=== PATIENT | female | born 1960 | race Caucasian/White ===

== ENCOUNTER 2025-01-01 01:56 | Inpatient (IN) | payer SELFPAY ==
[2024-12-31] VITALS (7 sets, daily range): BP systolic 106–182; BP diastolic 51–82; BMI 26.8
[2024-12-31 21:25] LABS: % Basophils 0.2 % (0-2); % Eosinophils 1.2 % (0-6); % Immature Granulocytes 0.2 % (0-0.5); % Lymphocytes 13.8 % (20.5-51.1); % Monocytes 5.8 % (1.7-9.3); % Neutrophils 78.8 % (42.2-75.2); Absolute Eosinophils 0.1 10^3/uL (0-0.7); Absolute Lymphocytes 1.1 10^3/uL (1.2-3.4); Absolute Monocytes 0.5 10^3/uL (0.1-0.6); Absolute Neutrophils 6.5 10^3/uL (1.4-6.5); Hematocrit 36.8 % (37.0-47.0); Hemoglobin 12.8 g/dL (12.0-16.0); Mean Corp Hgb Conc. 34.8 g/dL (33.0-37.0); Mean Corpuscular Hgb 29.7 pg (27.0-31.0); Mean Corpuscular Volume 85.4 fL (81.0-99.0); Mean Platelet Volume 10.6 fL (7.4-10.4); Nucleated Red Blood Cells % 0 %; Platelet Count 223 10^3/uL (130-400); Red Blood Cell Count 4.31 10^6/uL (4.20-5.40); Red Cell Dist. Width 12.9 % (11.5-14.5); White Blood Cell Count 8.3 10^3/uL (4.8-10.8)
[2024-12-31] MEDS: ZOFRAN 4 MG IV (21:31)
[2024-12-31] MEDS: TORADOL 15 MG IV (21:31)
[2024-12-31 21:38] LABS: ALT (SGPT) 22 U/L (0-35); AST (SGOT) 28 U/L (14-36); Albumin 4.4 g/dl (3.5-5.0); Alkaline Phosphatase 54 U/L (38-126); Blood Urea Nitrogen 23 mg/dl (7-17); Calcium 9.9 mg/dl (8.4-10.2); Carbon Dioxide 28 mmol/L (22-30); Chloride 105 mmol/L (98-107); Glucose 135 mg/dl (70-99); Lipase 99 U/L (23-300); Potassium 3.8 mmol/L (3.5-5.1); Sodium 143 mmol/L (135-145); Total Bilirubin 0.4 mg/dl (0.2-1.3); Total Protein 7.3 g/dl (6.3-8.2); eGFR > 60.00
[2024-12-31 22:09] LABS: Troponin I < 0.012 ng/ml
--- NOTE | 2024-12-31 22:48 | ED.GENMED ---
History of Present Illness
General
Chief Complaint: Abdominal Pain
Source: patient
Exam Limitations: none
Time Seen by Provider: 12/31/24 21:01
Nursing documentation reviewed up to this point in time: agreed with
History of Present Illness
History of Present Illness:
64-year-old female with a past medical history of hypertension, hyperlipidemia, hypothyroidism, sleep apnea who presents to the emergency room for evaluation of abdominal pain. Patient reports onset of symptoms around 6 PM and they have been
constant since that time. She has had intermittent symptoms for the past 3 days. She reports aching/pressure pain in the epigastrium that does not radiate. No clear triggering or relieving factors noted. She has nausea and some vomiting. No
diarrhea or constipation. Denies urinary symptoms. Denies chest pain or shortness of breath. She said she has had intermittent episodes in the past but typically they are transient; tonight is having consistent symptoms. She was noted to be
markedly bradycardic in triage. She denies any dizziness or lightheadedness. She has seen a chief resource officer through [place] for screening examinations. She was able to pull up an office note from her last visit and it was noted that she has
chronic first-degree AV block; she apparently had a Holter monitor in October 2023 which showed intermittent episodes of second-degree AV block with bradycardia into the 40s�she says that intermittent bradycardia is a known issue for her.
Past History
Past History
ED Past Medical History: Arrthythmia (First-degree AV block) and Hypercholesterolemia; Negative CAD, CVA or HTN
ED Past Surgical History: Negative Cardiac
Social History
Alcohol: None
Drug: None
Personal:
Employment: Employed
Family History
Family History: Hypertension and Other (Atrial fibrillation); Negative CAD
Review of Systems
Review of Systems
All Other Systems: ROS reviewed and negative except as documented in HPI and ROS
Constitutional: Denies fever or chills
Respiratory: Denies cough or trouble breathing
Cardiac: Denies chest pain
ABD/GI: Reports abdominal pain, nausea and vomiting; Denies diarrhea or constipated
: Denies dysuria or frequency
Musculoskeletal: Denies neck pain or back pain
Neurological: Denies dizzy or headache
Phy Exam
Physical Exam
Physical Exam:
General: Awake, alert, oriented x3; holding emesis bag
Head: Normocephalic, atraumatic
Eyes: Conjunctiva normal, sclera anicteric
Throat: Airway intact, handling secretions
Neck: Trachea midline, supple without meningismus
Lungs: Clear to auscultation bilaterally, no wheezing, rales, rhonchi
Heart: Bradycardia with regular rhythm, no murmurs, gallops, or rubs
Abd: Soft, non distended, tender to palpation epigastrium and right upper quadrant; no palpable masses
Neuro: No gross deficits
Skin: Warm, dry
Extremities: No edema in extremities, warm and well-perfused
Scores
Heart Failure Risk
Heart Failure Risk Score: Not Applicable
Heart Score for Chest Pain Patients
STEMI patient?: Not applicable
Withdrawal Assessment of Alcohol
Withdrawal Assessment Completed?: Not applicable
Course
Orders/Labs/Results
Orders:
Orders
12/31/24 20:39
EKG [Electrocardiogram (*1)] Urgent
Reason for Study: Abdominal Pain
12/31/24 20:40
EKG- Treatment ONCE
Urinalysis Reflex To Culture Stat
Date Specimen was Collected: 12/31/24
Time Specimen was Collected: 20:40
12/31/24 21:19
Complete Blood Count/With Diff Urgent
Comprehensive Metabolic Panel Urgent
Free T4 Urgent
Lipase Urgent
TSH Reflex To Free T4 Urgent
Comment: ADD ON
12/31/24 21:23
US Abdomen Complete/Upper Urgent
Comment:
Reason For Exam: upper abd pain and tenderness
12/31/24 21:27
Add On- LAB Urgent
Tests Added?: TSH reflex to T4
Ketorolac [Toradol] 15 mg IV NOW STA
Ondansetron Injectable [Zofran] 4 mg IV NOW STA
12/31/24 21:36
Troponin I Urgent
12/31/24 22:54
Atropine Sulfate [Atropine 0.1 mg/ml Syringe] 1 mg IV NOW STA
12/31/24 23:07
Electrocardiogram (*1) Urgent
Reason for Study: Bradycardia / Tachycardia
EKG- Treatment ONCE
01/01/25 00:45
CefTRIAXone [Rocephin] 1,000 mg IV NOW STA
MetroNIDAZOLE 500 MG/100 ML [Flagyl 500 mg] 100 ml IV NOW
01/01/25 00:52
CARDIOLOGY CONSULT Urgent
Consulting Provider: Nigel Reis
Was physician already notified: Yes
SURGICAL CONSULT Urgent
Consulting Provider: Scott Anaya
Was physician already notified: Yes
Abnormal Lab Results
12/31/24
21:19
Hct 36.8 L %
(37.0-47.0)
MPV 10.6 H fL
(7.4-10.4)
Absolute Lymphs (auto) 1.1 L 10^3/uL
(1.2-3.4)
Neutrophils % 78.8 H %
(42.2-75.2)
Lymphocytes % 13.8 L %
(20.5-51.1)
BUN 23 H mg/dl
(7-17)
Glucose 135 H mg/dl
(70-99)
TSH (Reflex) 6.85 H uIU/ml
(0.47-4.68)
12/31/24 21:19
12/31/24 21:19
Vital Signs
Initial and Last Documented VS:
Initial Vital Signs
Temp Pulse Resp BP Pulse Ox
36.4 C 38 18 156/72 100
12/31/24 20:51 12/31/24 20:51 12/31/24 20:51 12/31/24 20:51 12/31/24 20:51
Last Documented Vital Signs
Temp Pulse Resp BP Pulse Ox
36.4 C 88 16 124/78 99
12/31/24 20:51 12/31/24 23:00 12/31/24 23:00 12/31/24 23:00 12/31/24 23:00
MDM/Problems Addressed
Differential Diagnosis Includes:
Angina/ACS, cholecystitis, cholelithiasis, choledocholithiasis, pancreatitis, gastritis, bowel obstruction
MDM/Problems Addressed:
64-year-old female presents for evaluation of epigastric pain as described above. Hypertensive and markedly bradycardic with heart rate 30s to 40s. Physical exam as above. She was immediately brought back to a room and placed on a cardiac
monitor. Pacer pads were applied. IV placed labs sent off including CBC, CMP, lipase, troponin, TSH. Will check urinalysis. Her EKG shows junctional bradycardia�she is in complete heart block with a junctional escape rhythm. Will trial atropine
for bradycardia. Reviewed EKG with cardiology who agrees that it is consistent with complete heart block. She is in significant pain�they suspect could be increased vagal tone related to her pain. Recommended treating her pain, avoid AV jacky
blockers and close monitoring. She will require admission ultimately we will start with an upper abdominal ultrasound for evaluation of her upper abdominal pain. Monitor very closely.
Heart rate improved to the 80s with pain control and atropine.
Labs reviewed: CBC unremarkable, CMP no clinically significant abnormalities. Troponin negative. Lipase normal. TSH was high but free T4 normal. Ultrasound pending.
Ultrasound shows signs concerning for acute cholecystitis. Discussed with general surgery for consultation. Will treat with antibiotics. Will admit to hospitalist service given her issues with complete heart block earlier�fortunately she is in
sinus rhythm with heart rate in the 70s at present. Case discussed with hospitalist for admission.
Acute Exacerbation and/or Progression of Chronic Illness:
Acutely hypertensive
Acute Exacerbation and/or Progression of Chronic Illness: HTN
*Radiology
Radiology exam reviewed: radiology read reviewed
*Pulse Oximetry
Patient hypoxic: no
*EKG
Interpreted by ED Provider?: Yes
Heart Rate: 37
Rate: bradycardiac
Rhythm: sinus (Sinus rhythm with complete heart block and junctional escape rhythm)
[place]: normal axis
Interval: third degree heart block
QRS Pattern: normal QRS
Ischemia: no ischemia
*Critical Care Note
Total Time (30-74mins, 75-104mins- exclusive of procedures): 41
comment:
Critical care statement: A total of 41 minutes of critical care time was provided for this patient. This includes management of unstable vital signs, evaluation of the patient at bedside, frequent reassessment, discussion with
consultants/hospitalist, and review of pertinent medical records. This time was separate from time utilized to perform any aforementioned documented procedures
Data Reviewed
Source: patient and records
Patient Management
Discussion with other providers: Hospitalist (Discussed with hospitalist) and Quality Control Tester (Discussed with cardiology, discussed with general surgery)
Escalation/DeEscalation of care consider admission/obs:
Admission indicated
ED Attending Note
-
Portions of this chart may have been created with voice recognition software.� Occasional wrong word or��sound alike� substitutions may have occurred due to the inherent limitations of voice recognition software.
Discharge Plan
Departure
Patient Disposition: Admit
Date of Disposition: 01/01/25
Time of Disposition: 00:59
Admit to doctor: Torey
Presentation/result/management discussed w/ accepting MD/DO: Hospitalist
Discharge Problem:
Acute cholecystitis, Complete heart block
Referrals:
Kavitha Xiong CRNP [Family Provider] -
Interventions
Interventions:
*Risk Screen - Suicide Last Done: 12/31/24 20:55
*General Assessment Last Done: 12/31/24 20:55
*Neglect/Abuse Screening Last Done: 12/31/24 20:55
*ED COVID-19 Vaccine History Last Done: 12/31/24 20:55
MP-Fgkdbd-Bvnfywlpdt Assessment Last Done: 12/31/24 21:15
Discharge Date and Time
Print Language: [place]
[2024-12-31] MEDS: ATROPINE 0.1 MG/ML SYRINGE 1 MG IV (22:57)
[2024-12-31 23:09] LABS: TSH Reflex To Free T4 6.85 uIU/ml (0.47-4.68)
[2025-01-01] VITALS (54 sets, daily range): BP systolic 14–146; BP diastolic 51–107; PULSE 35–39
--- NOTE | 2025-01-01 00:30 | TRANSFER ---
Addendum entered by Davy Baptiste RN 01/02/25 01:45:
Pt transferred to IVU around 0030 on 01/02, not 01/01.
Original Note:
Pt remains in second degree type I heart block throughout shift, HR ranging from 30s-40s while awake, HR decreasing to as low as 28 with multiple ~ 2 second pauses while asleep with CPAP on. Pt is otherwise asymptomatic, BP remaining stable at
117/64, no pain or dizziness per pt. No complaints of pain. MIKALA Tee notified of bradycardia, EKG completed and showing afib with slow ventricular response with a competing junctional pacemaker, afib replacing previous EKG of sinus
rhythm. MIKALA Camara placed order for transfer to IVU. Pt transferred to IVU room 2243 with all her belongings and hospital CPAP machine. Pt remained pleasant and asymptomatic upon transfer.
[2025-01-01] MEDS: FLAGYL 500 MG 100 IV (01:04)
[2025-01-01] MEDS: ROCEPHIN 1000 MG IV (01:04)
--- NOTE | 2025-01-01 01:42 | HPS.HSE ---
Family Physician
-
Family Physician: REDD Oconnell
Chief Complaint
-
Abd pain
History of Present Illness
Patient is a 64y F with PMH significant for hypertension and hypothyroidism who presents to ED complaining of abdominal pain and N/V. Patient states that she developed epigastric abdominal pain around 6PM this evening. She had fairly severe
pain and associated N/V. Her symptoms did not improve after emesis. Patient reports 3 prior / similar episodes with less severe symptoms. Each occurs about 5 hours after eating a meal.
Her symptoms tonight were more severe and did not improve after emesis, prompting her to present to the ED for further evaluation.
While in the ED, patient developed significant bradycardia / complete heart block on monitor. She was given a dose of atropine and her rate improved.
Patient states that a similar event occurred during a previous ED visit for abdominal pain.
At the time of my examination patient is resting comfortably.
Medical History
Past Medical History
Past Medical History: Reports Other
Additional Past Medical History:
Hypothyroidism
Hypertension
First Degree AV Block
Past Surgical History: Reports Other
Additional Past Surgical History:
Hernia Repair
Breast Reduction / Scar Revision
Septoplasty
Social History
Tobacco: Former Smoker (Quit smoking in 1983. Minimal pack year history.)
Alcohol: Occasional
Drug: None
Family History
Family History: Not pertinent
Allergies / Home Medications
Allergies reflects when Allergies were last updated in [facility].
Home Medications with original date entered in [facility]
Allergy/Medication List:
Allergies
Allergy/AdvReac Type Severity Reaction Status Date / Time
No Known Allergies Allergy Verified 12/31/24 22:21
Home Medications
calcium carbonate 500 mg PO DAILY 01/01/25
cholecalciferol (vitamin D3) 25 mcg (1,000 unit) tablet 25 mcg PO DAILY 01/01/25
fenofibrate 54 mg tablet 54 mg PO DAILY 01/01/25
hydrochlorothiazide 12.5 mg tablet 12.5 mg PO DAILY 01/01/25
levothyroxine 125 mcg tablet 125 mcg PO DAILY 01/01/25
lisinopril 10 mg tablet 10 mg PO DAILY 01/01/25
Review of Systems
-
History Source: Patient
A 12 point ROS was completed and negative except as noted: Yes
Constitutional: Denies Fever, Fatigue or Chills
EENT: Denies Sore Throat
Respiratory: Denies Cough or Trouble Breathing
Cardiac: Denies Chest Pain or Palpitations
Abdomen/GI: Reports Abdominal Pain, Nausea and Vomiting; Denies Diarrhea, Constipated, Bloody Stools or Anorexia
: Denies Dysuria or Frequency
Musculoskeletal: Denies Joint Pain or Edema
Neurological: Denies Dizzy or Headache
Psych: Denies Depression or Anxiety
Physical Exam
Vital Signs
Vital Signs
Temp Pulse Resp BP Pulse Ox
97.5 F 60 17 126/79 95
12/31/24 20:51 01/01/25 01:00 01/01/25 01:00 01/01/25 01:00 01/01/25 01:00
Physical Exam
General: Other (64y F in no acute distress.)
HEENT: Moist mucous membranes and PERRLA
Respiratory: Clear; No Wheezes, Rales or Rhonchi
Cardiac: S1/S2 and Regular Rhythm; No Murmur
GI: Soft, Non Distended, Normal Bowel Sounds and Other (Mild epigastric tenderness. )
Musculoskeletal: No Clubbing, No Cyanosis and No Edema
Neuro: AO x 3
Laboratory Results
-
12/31/24 21:19
12/31/24 21:19
Laboratory Results
Total Bilirubin 0.4 mg/dl (0.2-1.3) 12/31/24 21:19
AST 28 U/L (14-36) 12/31/24 21:19
ALT 22 U/L (0-35) 12/31/24 21:19
Alkaline Phosphatase 54 U/L (38-126) 12/31/24 21:19
Troponin I < 0.012 ng/ml 12/31/24 21:36
Lipase 99 U/L (23-300) 12/31/24 21:19
Impression/Plan
-
A/P: Patient is a 64y F with PMH significant for hypertension and hypothyroidism who presents to ED complaining of abdominal pain.
Cholelithiasis +/- Acute Cholecystitis
- Admit for further evaluation and treatment.
- Post-prandial abdominal pain with associated N/V.
- US shows gallstones with some in GB neck and moderate wall thickening.
- IV abx, NPO, IVFs, pain control, etc.
- Surgery evaluation for further recommendations / cholecystectomy.
- Follow for any new / worsening symptoms.
Heart Block
- Chronic 1st degree block and period of complete block with significant bradycardia noted in the ED.
- Currently in 1st degree block with adequate HR on tele.
- Avoid any AV jacky agents.
- Monitor on telemetry. Zoll pads in place.
- Cardiology evaluation for additional recommendations (follows with Dr. Zendejas / [facility]).
Benign Hypertension
- Stable. Hold lisinopril and HCTZ acutely.
- Follow for changes.
Hypothyroidism
- Stable. Continue current T4 supplementation.
- TFTs done today in the ED are adequate.
DVT Prophylaxis: SCDs
Code Status: Full
[2025-01-01 03:20] LABS: Urine Albumin 1+ (Neg - Trace); Urine Bilirubin Negative (Negative); Urine Character Clear (Clear); Urine Color Yellow; Urine Glucose Negative (Negative); Urine Ketone Negative (Negative); Urine Leukocyte Negative (Negative); Urine Nitrite Negative (Negative); Urine Occult Blood 2+ (Negative); Urine Urobilinogen Negative (Neg - 1+)
[2025-01-01 03:59] LABS: Urine Amorphous Seen; Urine Bacteria Few (Negative); Urine Granular Cast 0-2 /LPF (0); Urine White Cell 0-2 /HPF (0-5)
[2025-01-01] MEDS: LR 1000 IV ×2 (04:30→18:15)
[2025-01-01] MEDS: ATROPINE 0.1 MG/ML SYRINGE 1 MG IV (05:23)
[2025-01-01 05:49] LABS: ALT (SGPT) 18 U/L (0-35); AST (SGOT) 23 U/L (14-36); Albumin 3.6 g/dl (3.5-5.0); Alkaline Phosphatase 37 U/L (38-126); Blood Urea Nitrogen 25 mg/dl (7-17); Carbon Dioxide 26 mmol/L (22-30); Chloride 110 mmol/L (98-107); Direct Bilirubin 0.2 mg/dl (0.0-0.4); Estimated Creatinine Clearance 73 ml/min; Glucose 107 mg/dl (70-99); Magnesium 1.9 mg/dl (1.6-2.3); Potassium 4.2 mmol/L (3.5-5.1); Sodium 143 mmol/L (135-145); Total Bilirubin 0.4 mg/dl (0.2-1.3); eGFR > 60.00
[2025-01-01 05:50] LABS: Hematocrit 31.7 % (37.0-47.0); Hemoglobin 10.9 g/dL (12.0-16.0); Mean Corp Hgb Conc. 34.4 g/dL (33.0-37.0); Mean Corpuscular Hgb 29.5 pg (27.0-31.0); Mean Corpuscular Volume 85.7 fL (81.0-99.0); Mean Platelet Volume 10.6 fL (7.4-10.4); Platelet Count 191 10^3/uL (130-400); Red Cell Dist. Width 12.8 % (11.5-14.5); White Blood Cell Count 7.9 10^3/uL (4.8-10.8)
[2025-01-01] MEDS: SYNTHROID 125 MCG PO (06:31)
[2025-01-01] MEDS: ZOSYN 50 IV ×3 (08:45→19:50)
[2025-01-01] MEDS: PROTONIX IV 40 MG IV (08:45)
[2025-01-01] MEDS: NSS (PRESERVATIVE FREE) 10 ML IV (08:46)
--- NOTE | 2025-01-01 09:31 | CON.GS ---
Addendum entered and electronically signed by Francisco Franco MD 01/01/25 11:05:
I saw and examined the patient independently.
The resident's documentation was reviewed and I agree with the note, assessment and plan except where noted below.
Comment: This is a 64-year-old female with a history of hypothyroidism, hypertension who presents with worsening abdominal pain that has now improved. Signs and symptoms of cholecystitis on ultrasound however clinically not significantly tender and
pain improved with antibiotics. Noted bradycardia. Cardiology on board with no urgent plan for pacemaker placement.
Will plan for a laparoscopic cholecystectomy in the OR today.
N.p.o., IV fluids, IV antibiotics ordered.
Risks/Benefits/Alternatives, expected postoperative course and possible complications (bleeding, infection, injury to surrounding structures, acute/chronic pain) discussed at length. Patient wishes to proceed with surgery. All questions answered.
Consent obtained.
I spent 75 minutes in total for the care of this patient today including direct patient care and counseling, reviewing labs, imaging, coordination of care, as well as documentation.
Original Note:
Consultation
-
Date/Time Consultation Requested: 01/01/25 12:52 AM
Date/Time Consultation Performed: 01/01/25 9:05 AM
Requesting Provider: Dr. Wes Wright
Performing Provider: Dr. Francisco Franco
Reason for Consultation: Acute cholecystitis seen on Abdominal ultrasound
Medical History
-
Chief Complaint: Acute abdominal pain
History of Present Illness:
Patient is a 64-year-old female with past medical history of hypertension, hypercholesterolemia, hypothyroidism, sleep apnea who presents to the ED accompanied by her for evaluation of epigastric abdominal pain that started around 6 PM the
previous evening on 12/31/24. She rates the pain as severe, persistent, location is in the epigastric quadrant radiating to right upper quadrant, associated with nausea and multiple episodes of vomiting, symptoms aggravated a couple of hours after
eating a meal, not relieved on positional change. She previously had 3-4 similar episodes since August 2024 after consuming a meal on different days, however the pain was not as severe at that time to warrant a visit to the ER and self limiting.
Patient is afebrile with a normal WBC count on admission. Abdominal U/S showed evidence of gallstones in the neck of the gallbladder, diffuse gallbladder wall thickening suggestive of acute cholecystitis.
Also, While in the emergency department she developed bradycardia/complete heart block on monitor.
Past Medical History
Past Medical History: HTN, Hypercholesterolemia, Hypothyroidism and Other (Sleep apnea)
Past Surgical History: Hernia Repair and Other (Breast reduction, Septoplasty)
Social History
Tobacco: Former Smoker (quit in 1983)
Alcohol: Occasional
Drug: None
Personal:
Employment: Employed
Family History
Family History: Reviewed & Not Pertinent
Allergies / Home Medications
Allergy/AdvReac Type Severity Reaction Status Date / Time
No Known Allergies Allergy Verified 12/31/24 22:21
�Medication �Instructions �Recorded �Confirmed �Type
calcium carbonate 500 mg PO DAILY 01/01/25 01/01/25 History
cholecalciferol (vitamin D3) 25 25 mcg PO DAILY 01/01/25 01/01/25 History
mcg (1,000 unit) tablet
fenofibrate 54 mg tablet 54 mg PO DAILY 01/01/25 01/01/25 History
hydrochlorothiazide 12.5 mg tablet 12.5 mg PO DAILY 01/01/25 01/01/25 History
levothyroxine 125 mcg tablet 125 mcg PO DAILY 01/01/25 01/01/25 History
lisinopril 10 mg tablet 10 mg PO DAILY 01/01/25 01/01/25 History
Review of Systems
-
History Source: Patient
All other systems: Negative unless noted
Abdomen/GI: Abdominal Pain, Nausea and Vomiting
A 10 point review of systems was completed, and was negative except as per HPI.
Physical Exam
Vital Signs
Temp Pulse Resp BP Pulse Ox
97.5 F 51 10 132/70 95
12/31/24 20:51 01/01/25 08:00 01/01/25 08:00 01/01/25 08:00 01/01/25 08:00
12/31/24 01/01/25 01/02/25
06:59 06:59 06:59
Actual Weight 72 kg
Body Mass Index (BMI) 26.8
Lab Results
01/01/25 05:15
01/01/25 05:15
WBC 7.9 10^3/uL (4.8-10.8) 01/01/25 05:15
Hgb 10.9 g/dL (12.0-16.0) L 01/01/25 05:15
Hct 31.7 % (37.0-47.0) L 01/01/25 05:15
Plt Count 191 10^3/uL (130-400) 01/01/25 05:15
Abs Immat Gran (auto) 0.0 10^3/uL (0-0.05) 12/31/24 21:19
Neutrophils % 78.8 % (42.2-75.2) H 12/31/24 21:19
Physical Exam
General: Well Developed and Well Nourished
Respiratory: Clear; Negative Wheezes, Rales or Rhonchi
Cardiac: S1/S2, Regular Rhythm and Other (Bradycardic)
GI: Soft, Non Distended, Normal Bowel Sounds and Tender (Mild tenderness in epigastric region on palpation)
Musculoskeletal: No Clubbing, No Cyanosis and No Edema
Skin: Warm and Dry
Neuro: Awake, Alert, Oriented and AO x 3
Psych: Calm
Data Reviewed
-
Ultrasound: Image Personally Visualized and interpreted, Report Reviewed by me and Discussed with Physician
Labs: Labs Reviewed by me and Discussed with Physician
Assessment / Plan
-
Acute Cholecystitis with cholelithiasis in neck of gallbladder:
- Abdominal US shows gallstones in neck of gallbladder and moderate wall thickening.
- Met patient at bedside today and discussed benefits, risks, complications of Cholecystectomy.
- Continue IV Zosyn
- Continue on NPO in anticipation of surgery
- Continue IV fluids
- Continue IV Protonix for stress ulcer ppx
- Pain control with Tylenol and Dilaudid PRN
First degree heart block/ Bradycardia:
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
- Has been asymptomatic (no fatigue, palpitations, lightheadedness, syncope) since her diagnosis
- Cardiology is following, and think that her Acute cholecystitis caused her bradycardia due to acute inflammation, she does not need a pacemaker, and is ok to proceed with surgery
Benign Hypertension:
- BP is 132/70 and well controlled, continue to monitor
- Hold Lisinopril and HCTZ until after procedure
Hypothyroidism:
- Continue on Levothyroxine
DVT ppx- SCD's
Full code
--- NOTE | 2025-01-01 10:22 | CON.CAR ---
Addendum entered and electronically signed by David Waite MD 01/01/25 11:12:
I saw and examined the patient.
The GENERAL PEDIATRICIAN or PA's note was reviewed and I agree with the note.
Comment: General: Well developed, well nourished in NAD.
Neck: Supple, no JVD, HJR, carotids +2 B/L, no bruits bilaterally.
Heart: Non displaced PMI, RRR, no murmurs, No S3, S4, no rubs.
Lungs: Clear to auscultation bilaterally, no wheeze, rhonchi, rubs bilaterally,
normal expiratory phase.
Extremities: No clubbing, cyanosis or edema bilaterally.
Neuro: Grossly nonfocal, awake, alert and oriented x3.
Suzie has a history of hypothyroidism, hypertension, first-degree AV block. She presented with abdominal pain and was found to have cholecystitis. Cardiology was consulted for heart block noted on telemetry she denies chest pain, short of
breath, palpitations or dizziness. Complete heart block has resolved.
Stable cardiology status for cholecystectomy without further testing. May consider monitor on discharge. She has cardiology follow-up at [facility].
Original Note:
Consultation
Consultation Request
Date/Time Consultation Requested: 01/01/2025
Date/Time Consultation Performed: 01/01/2025
Requesting Provider: Dr. Lema
Performing Provider: Jane Ramírez PA-C for Dr. Waite
Reason for Consultation: Cholecystitis, intermittent heart block
Medical History
-
History of Present Illness:
HPI: Suzie is a 64 year old female with PMH of hypothyroidism and hypertension. Presented to [facility] for evaluation of abdominal pain. She has been struggling with intermittent abdominal discomfort since August 2024, however symptoms initially
only occurred about 1x/month and would resolve quickly, however over the past few weeks, has had more frequent episodes. Last night had a severe episode of abdominal discomfort after eating which persisted after a few hours, prompting ER evaluation.
In ER, she was noted to have evidence of acute cholecystitis on abdominal US and was admitted and started on IV abx. General surgery has been consulted for evaluation as well. She is pain free currently. While in ER, also noted to have intermittent
episodes of bradycardia with higher grade AV block. Asymptomatic. At baseline, has a long 1st degree AV block, which she states is known and has been followed by her primary design coordinator. She has never had discussions regarding need for PPM, however
multiple family members have required PPM and ICD implant, so she is familiar. She denies any dizziness, lightheadedness, syncope, or near syncope. No chest pain or SOB, but notes w/ severe abdominal pain last night, felt like she needed to take
shallow breaths.
PMH:
Hypothyroidism
HTN
1st degree AV Block
Past Medical History
Past Medical History: Other (In HPI)
Past Surgical History: Other (hernia repair, breast reduction, septoplasty)
Social History
Tobacco: Former Smoker (Quit in )
Alcohol: Occasional
Drug: None
Personal:
Living: With Family
Employment: Employed (manager performance RN)
Family History
Family History: Other (mother & father had PPM, brother has ICD)
Allergies / Home Medications
Allergy/AdvReac Type Severity Reaction Status Date / Time
No Known Allergies Allergy Verified 12/31/24 22:21
�Medication �Instructions �Recorded �Confirmed �Type
calcium carbonate 500 mg PO DAILY 01/01/25 01/01/25 History
cholecalciferol (vitamin D3) 25 25 mcg PO DAILY 01/01/25 01/01/25 History
mcg (1,000 unit) tablet
fenofibrate 54 mg tablet 54 mg PO DAILY 01/01/25 01/01/25 History
hydrochlorothiazide 12.5 mg tablet 12.5 mg PO DAILY 01/01/25 01/01/25 History
levothyroxine 125 mcg tablet 125 mcg PO DAILY 01/01/25 01/01/25 History
lisinopril 10 mg tablet 10 mg PO DAILY 01/01/25 01/01/25 History
Review of Systems
-
History Source: Patient
All other systems: Negative unless noted
Physical Exam
Vital Signs
Temp Pulse Resp BP Pulse Ox
97.5 F 51 10 132/70 95
12/31/24 20:51 01/01/25 08:00 01/01/25 08:00 01/01/25 08:00 01/01/25 08:00
Lab Results
01/01/25 05:15
01/01/25 05:15
Troponin I < 0.012 ng/ml 12/31/24 21:36
Physical Exam
General: Well Developed, Well Nourished and No Apparent Distress
HEENT: Normocephalic, Anicteric and Moist Mucous Membranes
Respiratory: Clear and Non Labored Respirations
Cardiac: S1/S2 and Regular Rhythm
Musculoskeletal: No Clubbing, No Cyanosis and No Edema
Skin: Warm and Dry
Neuro: AO x 3 and Nonfocal/Grossly Intact
Psych: Calm
Impression / Plan
-
PCP: REDD Oconnell
Global Compensation Director: Dr. Lisha Zendejas ([facility])
Impression:
Presented with abdominal pain
Acute cholecystitis by abdominal US
1st degree AV block
Intermittent high grade AV block
Hypothyroidism
HTN
Echo 01/01/2025: Study pending
Plan:
-Presented with worsening abdominal pain. Admitted with acute cholecystitis.
-General surgery following and tentative plan is for cholecystectomy. Remains NPO.
-Continue abx per primary service.
-Cardiology consulted for evaluation given episodes of bradycardia w/ higher grade AV block. Suspect vagal w/ abdominal pain.
-In SR with long 1st degree AV block at baseline.
-Asymptomatic w/ bradycardia and denies history of dizziness/lightheadedness, or syncope.
-Did discuss PPM briefly, however no current indication for pacer implant at this time.
-Keep Zoll pads in place.
-Not on any AV jacky blockers, continue to avoid.
-Check echo
-TSH 6.85, free T4 1.5. Continue levothyroxine.
-K and mag stable.
-BP stable. Lisinopril and HCTZ on hold currently. Follow BP and resume as able.
HPI: Suzie is a 64 year old female with PMH of hypothyroidism and hypertension. Presented to [facility] for evaluation of abdominal pain. She has been struggling with intermittent abdominal discomfort since August 2024, however symptoms initially
only occurred about 1x/month and would resolve quickly, however over the past few weeks, has had more frequent episodes. Last night had a severe episode of abdominal discomfort after eating which persisted after a few hours, prompting ER evaluation.
In ER, she was noted to have evidence of acute cholecystitis on abdominal US and was admitted and started on IV abx. General surgery has been consulted for evaluation as well. She is pain free currently. While in ER, also noted to have intermittent
episodes of bradycardia with higher grade AV block. Asymptomatic. At baseline, has a long 1st degree AV block, which she states is known and has been followed by her primary design coordinator. She has never had discussions regarding need for PPM, however
multiple family members have required PPM and ICD implant, so she is familiar. She denies any dizziness, lightheadedness, syncope, or near syncope. No chest pain or SOB, but notes w/ severe abdominal pain last night, felt like she needed to take
shallow breaths.
Data Reviewed
-
EKG: Tracing Personally Visualized and interpreted
Ultrasound: Report Reviewed by me
Labs: Labs Reviewed by me
Old Records: Requested
--- NOTE | 2025-01-01 11:06 | W.SUR.PREOP ---
Pre-Operative Surgical Note
-
I have examined this patient prior to the performance of the scheduled procedure.
The patient's condition is unchanged from the time of the current History and
Physical and the patient is able to undergo the scheduled procedure.
--- NOTE | 2025-01-01 12:10 | W.PN.UPDATE ---
Update Note
Progress Note Update
Brief General Surgery note:
Patient noted to be in Mobitz 1 versus complete heart block in the OR with continued bradycardia prior to induction. Though the patient is mentating well and her blood pressure is okay this clinical picture is high risk for further cardiac
arrhythmias and possible asystole. After discussion with anesthesia we will abort this case. Will consider possible percutaneous cholecystostomy tube as a temporizing measure versus OR later this admission pending her clinical course.
--- NOTE | 2025-01-01 14:24 | W.PN.UPDATE ---
Update Note
Progress Note Update
note serves as supplemental to H&P recorded today. Cards cleared for procedure. MOnitor on Tele post procedure. With HB, anesthesia hesistant on on lap betsy. At this time, decision is either percutaneous cholecystostomy tube v perc betsy after
continued monitoring.
--- NOTE | 2025-01-01 16:30 | PTCARENOTE ---
5/- Patient transferred and oriented to unit without issue. AAOX3; Skin CDI and warm/pink/dry. Patient states some epigastric tenderness upon eating but nothing at rest; Patient denies dizziness lightheadedness, chest pain or SOB despite 3rd
degree HB with Bradycardia on Telemetry #[id number]. Discussed plan of care with patient and questions for doctor. She verbalized understanding. Will continue to monitor.
[2025-01-02] VITALS (15 sets, daily range): BP systolic 121–149; BP diastolic 52–94; BMI 26.2
--- NOTE | 2025-01-02 00:10 | W.PN.UPDATE ---
Update Note
Progress Note Update
Bradycardia hr down to 28 while she is sleeping and back to 50s-60s once she wakes up, pauses noted up to 2.27 sec. bp 117/63, Patient asymptomatic.
EKG done and will transfer the patient to IVU for close monitoring.
--- NOTE | 2025-01-02 00:30 | TRANSFER ---
Pt remains in second degree type I heart block throughout shift, HR ranging from 30s-40s while awake, HR decreasing to as low as 28 with multiple ~ 2 second pauses while asleep with CPAP on. Pt is otherwise asymptomatic, BP remaining stable at
117/64, no pain or dizziness per pt. No complaints of pain. MIKALA Tee notified of bradycardia, EKG completed and showing afib with slow ventricular response with a competing junctional pacemaker, afib replacing previous EKG of sinus
rhythm. MIKALA Camara placed order for transfer to IVU. Pt transferred to IVU room 2243 with all her belongings and hospital CPAP machine. Pt remained pleasant and asymptomatic upon transfer.
--- NOTE | 2025-01-02 00:45 | PTCARENOTE ---
Addendum entered by Joana Khan RN 01/02/25 07:41:
compounder REDD Lacy kept updated on Pt's HR, with the lowest HR 23, nonsustained. No new orders until this morning at around 0545, atropine 0.5 mg was ordered and given. HR improved to mid 50's. Pt remains asymptomatic, BP stable. Blood glucose 90
this morning. TSH order by REDD, drawn and sent lab. LR infusing at 80ml/hr.
Original Note:
Pt transferred from 4W to room 2243 as per orders, aaox3, denies pain or SOB. SB w/ 2nd degree HB on the monitor,HR 30-40's with non sustained drops to 28's and 29's. Zoll pads on. Bp stable. O2 sat 96 -99 % RA. Pt oriented to room and call light,
on agreement with POC.
[2025-01-02] MEDS: ZOSYN 50 IV ×4 (03:00→20:00)
[2025-01-02 03:41] LABS: Hematocrit 30.4 % (37.0-47.0); Hemoglobin 10.4 g/dL (12.0-16.0); Mean Corp Hgb Conc. 34.2 g/dL (33.0-37.0); Mean Corpuscular Hgb 29.4 pg (27.0-31.0); Mean Corpuscular Volume 85.9 fL (81.0-99.0); Mean Platelet Volume 10.8 fL (7.4-10.4); Platelet Count 169 10^3/uL (130-400); Red Blood Cell Count 3.54 10^6/uL (4.20-5.40); Red Cell Dist. Width 12.9 % (11.5-14.5); White Blood Cell Count 4.7 10^3/uL (4.8-10.8)
[2025-01-02 04:00] LABS: ALT (SGPT) 15 U/L (0-35); AST (SGOT) 20 U/L (14-36); Albumin 3.2 g/dl (3.5-5.0); Alkaline Phosphatase 34 U/L (38-126); Blood Urea Nitrogen 22 mg/dl (7-17); Calcium 8.9 mg/dl (8.4-10.2); Carbon Dioxide 27 mmol/L (22-30); Chloride 107 mmol/L (98-107); Estimated Creatinine Clearance 63 ml/min; Glucose 88 mg/dl (70-99); Potassium 3.8 mmol/L (3.5-5.1); Sodium 140 mmol/L (135-145); Total Bilirubin 0.5 mg/dl (0.2-1.3); Total Protein 5.5 g/dl (6.3-8.2); eGFR > 60.00
[2025-01-02 05:41] LABS: Glucose - Point of Care 90 mg/dl (70-99)
[2025-01-02] MEDS: SYNTHROID 125 MCG PO (05:43)
[2025-01-02] MEDS: ATROPINE 0.1 MG/ML SYRINGE 0.5 MG IV (05:49)
--- NOTE | 2025-01-02 06:24 | W.PN.UPDATE ---
Update Note
Progress Note Update
RN reports HR dips down to 20's-30's, mostly in 40'50's. Irregular, Asymptomatic, 97.7, 18, 97% RA 147/87. Blood sugar 90. Will order Atropine 0.5mg IVx1. labs pending, TSH pending.
[2025-01-02 07:13] LABS: TSH 5.65 uIU/ml (0.47-4.68)
[2025-01-02] MEDS: PROTONIX IV 40 MG IV (08:54)
[2025-01-02] MEDS: NSS (PRESERVATIVE FREE) 10 ML IV (08:54)
--- NOTE | 2025-01-02 09:46 | W.PN.CARDCBS ---
Addendum entered and electronically signed by William Medellin DO 01/02/25 13:22:
I saw and examined the patient.
The Pipeline Maintenance Supervisor's note was reviewed and I agree with the note.
Comment:
Plan:
Echo with preserved EF. outpt follow up of her MR.
Tele has been reviewed with EP as well. Pt is compensated for OR today. EP recommendations have been conveyed.Atropine and dopamine can be used as needed perioperatively.
Pads will remain on for now.
Discussed with pt and with family at bedside.
Addendum entered and electronically signed by Riri Schaefer PA-C 01/02/25 10:24:
d/w EP. concern for high vagal tone from cholecystitis/bile duct disease as component of some of her conduction disease. continue IVF as per primary service/surgical team. can leave pads in place for OR. could consider low dose dopamine gtt as well
as atropine as needed for OR. she will likely require device at some point in the future however no urgent indication and remains asymptomatic. d/w gen surg via TT.
Original Note:
Today's Communication / Plan
-
check echo
awaiting records
follow on tele
NPO
Impression / Plan
-
PCP: REDD Oconnell
Director Custom: Dr. Lisha Zendejas ([facility])
Impression:
Presented with abdominal pain
Acute cholecystitis by abdominal US
1st degree AV block
Intermittent high grade AV block
Hypothyroidism
HTN
Echo 01/02/2025: Study pending
Plan:
-Presented with worsening abdominal pain. Admitted with acute cholecystitis.
-General surgery following and tentative plan is for cholecystectomy. Remains NPO.
-Continue abx per primary service.
-Cardiology consulted for evaluation given episodes of bradycardia w/ higher grade AV block. had multiple episodes of HRs briefly into 20s overnight. will discuss with EP
-In SR with long 1st degree AV block at baseline. awaiting records from [facility] cardiology for review
-Asymptomatic w/ bradycardia and denies history of dizziness/lightheadedness, or syncope.
-she has multiple family members who reportedly have required devices. we discussed will likely eventually require PPM
-Zoll pads in place.
-Not on any AV jacky blockers as OP, continue to avoid.
-Check echo
-TSH 6.85, free T4 1.5. Continue levothyroxine.
-K and mag stable.
-BP stable. Lisinopril and HCTZ on hold currently. Follow BP and resume as able.
-would consider for OP athletic monitor upon DC if not recently completed
-d/w patient and at bedside
HPI: Suzie is a 64 year old female with PMH of hypothyroidism and hypertension. Presented to [facility] ER for evaluation of abdominal pain. She has been struggling with intermittent abdominal discomfort since August 2024, however symptoms initially
only occurred about 1x/month and would resolve quickly, however over the past few weeks, has had more frequent episodes. Last night had a severe episode of abdominal discomfort after eating which persisted after a few hours, prompting ER evaluation.
In ER, she was noted to have evidence of acute cholecystitis on abdominal US and was admitted and started on IV abx. General surgery has been consulted for evaluation as well. She is pain free currently. While in ER, also noted to have intermittent
episodes of bradycardia with higher grade AV block. Asymptomatic. At baseline, has a long 1st degree AV block, which she states is known and has been followed by her primary application performance engineer. She has never had discussions regarding need for PPM, however
multiple family members have required PPM and ICD implant, so she is familiar. She denies any dizziness, lightheadedness, syncope, or near syncope. No chest pain or SOB, but notes w/ severe abdominal pain last night, felt like she needed to take
shallow breaths.
Progress Note - Director Custom
Subjective
Date of Service: January 02, 2025
no complaints. NPO
Objective
Labs:
01/02/25:56
01/02/25 02:56
Labs
Hgb 10.4 g/dL (12.0-16.0) L 01/02/25 02:56
Hct 30.4 % (37.0-47.0) L 01/02/25 02:56
Plt Count 169 10^3/uL (130-400) 01/02/25 02:56
Sodium 140 mmol/L (135-145) 01/02/25 02:56
Potassium 3.8 mmol/L (3.5-5.1) 01/02/25 02:56
BUN 22 mg/dl (7-17) H 01/02/25 02:56
Creatinine 0.8 mg/dL (0.6-1.0) 01/02/25 02:56
Glucose 88 mg/dl (70-99) 01/02/25 02:56
Troponins
12/31/24
21:36
Troponin I < 0.012
Vital Signs and I&O:
Vital Signs
Temp Pulse Resp BP Pulse Ox
97.4 F 53 18 147/87 100
01/02/25 07:26 01/02/25 07:00 01/02/25 07:26 01/02/25 05:43 01/02/25 07:26
Vital Signs
Temp Pulse Resp BP Pulse Ox
97.4 F 53 18 147/87 100
01/02/25 07:26 01/02/25 07:00 01/02/25 07:26 01/02/25 05:43 01/02/25 07:26
Intake & Output
12/31/24 01/01/25 01/02/25 01/03/25
07:59 07:59 07:59 07:59
Intake Total 790 / 790
Balance 790 / 790
Physical Exam
Physical Exam
GEN: No distress, awake, alert, oriented x3. sitting on sofa. pads in place
HEENT: supple, anicteric, mmm, eomi
LUNGS: CTA B/L, no wheezes/rales
CV: Reg, S1/S2, no murmur
ABD: soft, BS+, NT/ND
EXT: No cyanosis, clubbing, edema
NEURO: Gross non-focal
SKIN: Warm, pink, dry. No rash
[2025-01-02] MEDS: LR 1000 IV (10:22)
--- NOTE | 2025-01-02 10:33 | CM ---
Chart reviewed. Patient is independent of ADLS, lives with her in a 2 [address], 1st level set up, 1 [place], 0 DME. Plan is for the patient to return home. CM to follow
--- NOTE | 2025-01-02 10:43 | W.PN.UPDATE ---
Update Note
Progress Note Update
I reviewed patient's telemetry and although she has some nighttime bradycardia she has a history of longstanding first-degree AV delay and periods of Mobitz 1 type II AV block and heart rates hop picker during waking hours. Her periods of 2-1 AV block
are likely wenkebach periodicity. She is asymptomatic with stable blood pressures. I would have no objection for her receiving cholecystectomy and I suspect some of her increased vagal tone may be related to the cholecystitis itself. Pain may
also be contributory to the increased vagal tone. Despite her bradycardia she has been relatively normotensive and would prefer ephedrine or dopamine for blood pressure support as necessary during induction and avoiding Kam-Synephrine if possible.
Pacing pads can be applied and atropine at the bedside although I suspect she will not require these. I do not see an indication for permanent pacing particularly in the setting of active cholecystitis. Can proceed to surgery as per our notes and
please do not hesitate to contact us with any further questions.
--- NOTE | 2025-01-02 14:19 | W.PN.HOSP.TC ---
Today's Communication/Plan
-
Procedure as per Surg
Abx
Monitor on tele, dopamine and atropine if needed
Assessment / Plan
Assessment / Plan
Physical Exam
General: Other (64y F in no acute distress.)
HEENT: Moist mucous membranes and PERRLA
Respiratory: Clear; No Wheezes, Rales or Rhonchi
Cardiac: S1/S2 and Regular Rhythm; No Murmur; Bradycardia
GI: Soft, Non Distended, Normal Bowel Sounds and Other (Mild epigastric tenderness. )
Musculoskeletal: No Clubbing, No Cyanosis and No Edema
Neuro: AO x 3
A/P: Patient is a 64y F with PMH significant for hypertension and hypothyroidism who presents to ED complaining of abdominal pain.
Cholelithiasis +/- Acute Cholecystitis
- Admit for further evaluation and treatment.
- Post-prandial abdominal pain with associated N/V.
- US shows gallstones with some in GB neck and moderate wall thickening.
- IV abx, NPO, IVFs, pain control, etc.
- Surgery evaluation for further recommendations / cholecystectomy v Perc Mariam tube
Heart Block
- Mobitz Type I
- Atropine, dopamine are options ray-procedure
-Pacing pads remain on
- Cardiology evaluation for additional recommendations (follows with Dr. Zendejas / [facility] Nov[facility]).
Benign Hypertension
- Stable. Hold lisinopril and HCTZ acutely.
- Follow for changes.
Hypothyroidism
- Stable. Continue current T4 supplementation.
DVT Prophylaxis: SCDs; DVT ppx post procedure
Code Status: Full
Anticipated Discharge: 24 - 48 hours
Subjective/Interval History
-
Date of Service: January 02, 2025
trent to 20s, Mobitz Type I
For
Objective Data
-
Labs:
Laboratory Results
01/02/25
02:56
WBC 4.7 L
Hgb 10.4 L
Hct 30.4 L
Plt Count 169
Sodium 140
Potassium 3.8
Chloride 107
Carbon Dioxide 27
BUN 22 H
Creatinine 0.8
Glucose 88
Calcium 8.9
Total Bilirubin 0.5
AST 20
ALT 15
Alkaline Phosphatase 34 L
Vital Signs:
Vital Signs
Temp Pulse Resp BP Pulse Ox
97.6 F 41 16 149/82 100
01/02/25 12:23 01/02/25 10:00 01/02/25 12:23 01/02/25 07:25 01/02/25 12:23
I&O
01/01/25 01/02/25 01/03/25
06:59 06:59 06:59
Intake Total 790 / 790
Balance 790 / 790
--- NOTE | 2025-01-02 14:50 | W.IMMPOSTOP ---
Surgical Immed Post Op Note
-
Primary Surgeon: Francisco Franco MD
Assisting Surgeon: None
Pre-op Diagnosis: Acute cholecystitis
Post-op Diagnosis: Same
Procedure Performed: Laparoscopic cholecystectomy
Anesthesia Type: General
Specimen / Cultures: Gallbladder and contents
Estimated Blood Loss: 7 cc
Complications: None
Operative Findings: Acutely inflamed mildly distended gallbladder with stigmata of chronic cholecystitis with adhesions to the surrounding periduodenal fat and duodenum which were lysed with sharp dissection. Critical view of safety obtained prior
to a ductotomy to come from free-flowing bile and no sludge in the duct. The duct was then ligated with a clip followed by 0 PDS Endoloop. 2 posterior cystic arteries were identified along the gallbladder bed which were ligated. Surgiflo was
applied to the field to ensure hemostasis.
POST OP PLAN:
Imaging: None
Labs: Routine AM
Diet: Advance to Regular as tolerated
Analgesia: Tylenol 650mg q6 Lidia, Pily 5mg q6 PRN, Dilaudid 0.5mg q2h PRN
Neuro/vascular checks: q4h
AC/AP: Hold Therapeutic AC, Ok for DVT PPx
Activity: Ad Cici
Wound/Incisions/Drains: Routine
Abx: Can continue antibiotics for 24 hours.
Dispo: RNF, anticipate discharge home tomorrow.
--- NOTE | 2025-01-02 15:12 | OR.RPT ---
Operative Report
Operative Report
Patient Name: Suzie Friedman
: 1960
Date of Operation: 01/02/2025
Preoperative Diagnosis: Acute cholecystitis
Postoperative Diagnosis: Same
Procedure(s):
Laparoscopic Cholecystectomy
Surgeon(s):
Dr. Franco
Veneer Sheet Repairer(s):
RHODA Morelos
Anesthesia: General
Estimated Blood Loss: 7 cc
Urine Output: None
Drains/Lines/Implants: None
Specimens:
1. Gallbladder and contents
HPI/Surgical Indications:
This is a 64-year-old female with a history of known bradycardia who presented with 1 to 2 days of postprandial right upper quadrant abdominal pain, in the setting of similar prior episodes in the past. Exam, labs and imaging are consistent with
early acute cholecystitis. Risks/Benefits/Alternatives were discussed at length, and the patient agreed to proceed with surgery. She was initially taken to the OR on 01/01/2025 however this case was aborted prior to induction due to EKG changes
however she was reevaluated by cardiology and cleared.
Operative Findings: Acutely inflamed mildly distended gallbladder with stigmata of chronic cholecystitis with adhesions to the surrounding periduodenal fat and duodenum which were lysed with sharp dissection. Critical view of safety obtained prior
to a ductotomy to come from free-flowing bile and no sludge in the duct. The duct was then ligated with a clip followed by 0 PDS Endoloop. 2 posterior cystic arteries were identified along the gallbladder bed which were ligated. Surgiflo was
applied to the field to ensure hemostasis.
Procedure Description:
The patient was brought to the Operating Room and placed in the supine position with arms out and pads on. Following uneventful induction of general endotracheal anesthesia, an orogastric tube was placed. The abdomen was prepped and draped in the
usual sterile fashion. A timeout was performed confirming the procedure, consent, and that IV antibiotics were infused and sequential compression devices were confirmed to be on. The abdomen was entered using an infraumbilical open Adela technique
with a 12 mm balloon-tipped trocar. Pneumoperitoneum to 10mmHg pressure was obtained without difficulty and we confirmed that no injury had occurred during our entry. The patient was positioned in reverse Trendelenberg and rotated with the right
side up slightly. Three (3) 5mm trocars were then placed along the right subcostal margin. The gallbladder was slightly distended and inflamed but a locking grasping forceps was placed on the fundus of the gallbladder where it was then retracted
cephalad and to the right. There were some flimsy adhesions from the periduodenal fat and duodenum itself over the infundibulum indicating some component of chronic cholecystitis. These were lysed with sharp dissection. Using appropriate grasping
instruments, the peritoneum overlying the triangle of Calot was incised and extended superiorly on both the anterior and posterior gallbladder wong. The infundibulum was dissected off the cystic plate. The cystic triangle was dissected until a
critical view of safety was achieved. The cystic artery was medialized, dissected and controlled with 2 proximal clips and 1 distal. The cystic duct/gallbladder junction in turn was identified, dissected circumferentially and a clip was placed. A
ductotomy was made and there was good backflow of bile initially thick black bile then clear brown. As her preoperative liver enzymes and intraoperative anatomy were clearly defined no cholangiogram was performed. The duct was then controlled with
an additional clip followed by a 0 PDS Endoloop. After ensuring both the artery and duct were divided, the gallbladder was freed from the liver using electrocautery. There was some spillage of bile from our ductotomy, but no spillage of stones. The
gallbladder bed was inspected and excellent hemostasis was obtained. The gallbladder was extracted through the 12 mm trocar site using an endocatch bag. The abdomen was again irrigated and excellent hemostasis was assured. All remaining trocars
were then removed and the pneumoperitoneum was evacuated. The 12 mm trocar site was closed using 0 PDS suture. All trocar sites were closed at the skin level using 4-0 Monocryl followed by Dermabond. Overall, the patient tolerated the procedure
well and was taken to the Recovery Room postoperatively in stable condition.
I was the attending physician and performed the procedure with assistance from the POSTING MACHINE OPERATOR above. I was present for all portions of the case, excluding skin closure.
Francisco Franco MD
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
[2025-01-02] MEDS: TYLENOL 650 MG PO (18:14)
[2025-01-02] MEDS: ZOFRAN 4 MG IV (20:29)
[2025-01-02] MEDS: SENOKOT-S 1 TABLET PO (20:29)
--- NOTE | 2025-01-02 22:29 | PTCARENOTE ---
Patient AAOx3, Tele monitor shows second degree Type 1. HR in the 30-50's at rest. Patient asymptomatic, BP stable, and denies any dizziness. Patient c/o upper abdomen tenderness and nausea. PRN Zofran administered--see MAR for further details. Pt
w/ + BS in all 4 quadrants, and soft upon palpation. 4 lap sites w/ surgical glue intact. No drainage noted. Patient aware of POC, and can make needs known. Call isaacs in reach.
[2025-01-03] MEDS: ZOSYN 50 IV ×2 (02:12→08:35)
[2025-01-03 02:17] VITALS: BP 149/60
[2025-01-03 02:34] LABS: Hematocrit 33.4 % (37.0-47.0); Hemoglobin 11.5 g/dL (12.0-16.0); Mean Corp Hgb Conc. 34.4 g/dL (33.0-37.0); Mean Corpuscular Hgb 29.4 pg (27.0-31.0); Mean Corpuscular Volume 85.4 fL (81.0-99.0); Mean Platelet Volume 10.2 fL (7.4-10.4); Platelet Count 199 10^3/uL (130-400); Red Blood Cell Count 3.91 10^6/uL (4.20-5.40); Red Cell Dist. Width 12.5 % (11.5-14.5); White Blood Cell Count 7.4 10^3/uL (4.8-10.8)
[2025-01-03 02:55] LABS: ALT (SGPT) 44 U/L (0-35); AST (SGOT) 64 U/L (14-36); Albumin 4.1 g/dl (3.5-5.0); Alkaline Phosphatase 44 U/L (38-126); Blood Urea Nitrogen 19 mg/dl (7-17); Carbon Dioxide 25 mmol/L (22-30); Chloride 105 mmol/L (98-107); Estimated Creatinine Clearance 73 ml/min; Glucose 99 mg/dl (70-99); Potassium 4.7 mmol/L (3.5-5.1); Sodium 141 mmol/L (135-145); Total Bilirubin 0.6 mg/dl (0.2-1.3); Total Protein 6.5 g/dl (6.3-8.2); eGFR > 60.00
[2025-01-03] MEDS: SYNTHROID 125 MCG PO (05:14)
[2025-01-03] MEDS: TYLENOL 650 MG PO (07:06)
[2025-01-03 08:12] VITALS: BP 144/65
[2025-01-03] MEDS: PROTONIX IV 40 MG IV (08:34)
[2025-01-03] MEDS: SENOKOT-S PO (08:34)
[2025-01-03] MEDS: NSS (PRESERVATIVE FREE) 10 ML IV (08:37)
--- NOTE | 2025-01-03 09:12 | W.PN.CARDCBS ---
Addendum entered and electronically signed by David Waite MD 01/03/25 10:47:
I saw and examined the patient.
The PICK OUT [employer] or PA's note was reviewed and I agree with the note.
Comment: General: Well developed, well nourished in NAD.
Neck: Supple, no JVD, HJR, carotids +2 B/L, no bruits bilaterally.
Heart: Non displaced PMI, RRR, no murmurs, No S3, S4, no rubs.
Lungs: Clear to auscultation bilaterally, no wheeze, rhonchi, rubs bilaterally,
normal expiratory phase.
Extremities: No clubbing, cyanosis or edema bilaterally.
Neuro: Grossly nonfocal, awake, alert and oriented x3.
Stable cardiology status for discharge. Discussed with primary service. 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
Original Note:
Today's Communication / Plan
-
rhythm stable
continue post op care
patient to arrange OP follow up with cargo worker
ok for DC
Impression / Plan
-
PCP: REDD Oconnell
Renal Technician: Dr. Lisha Zendejas ([facility])
Impression:
Presented with abdominal pain
Acute cholecystitis by abdominal US s/p lap betsy 01/03/25
1st degree AV block
Intermittent high grade AV block
Hypothyroidism
HTN
Echo 01/02/2025: EF 55 to 60%, at least moderate MR, no significant valvular abnormalities otherwise, no pericardial effusion
Plan:
-Presented with worsening abdominal pain. Admitted with acute cholecystitis and underwent lap betsy 01/02/25
-doing well. states pain well controlled
-rhythm remains stable on review of tele overnight, mostly wenckebach with occasional brief episodes of 2:1. will likely eventually require device
-continue to avoid av jacky blocking agents
-reviewed results of echo with patient, noted to have mod MR. will need follow up with primary cargo worker. will provide echo report and disc for patient to take with her for Dr. Zendejas's review
-BP stable. Lisinopril and HCTZ on hold currently. Follow BP and resume as able.
-ok for DC today from cardiac standpoint
-will plan to sign off.
HPI: Suzie is a 64 year old female with H of hypothyroidism and hypertension. Presented to [facility] ER for evaluation of abdominal pain. She has been struggling with intermittent abdominal discomfort since August 2024, however symptoms initially
only occurred about 1x/month and would resolve quickly, however over the past few weeks, has had more frequent episodes. Last night had a severe episode of abdominal discomfort after eating which persisted after a few hours, prompting ER evaluation.
In ER, she was noted to have evidence of acute cholecystitis on abdominal US and was admitted and started on IV abx. General surgery has been consulted for evaluation as well. She is pain free currently. While in ER, also noted to have intermittent
episodes of bradycardia with higher grade AV block. Asymptomatic. At baseline, has a long 1st degree AV block, which she states is known and has been followed by her primary cargo worker. She has never had discussions regarding need for PPM, however
multiple family members have required PPM and ICD implant, so she is familiar. She denies any dizziness, lightheadedness, syncope, or near syncope. No chest pain or SOB, but notes w/ severe abdominal pain last night, felt like she needed to take
shallow breaths.
Progress Note - Renal Technician
Subjective
Date of Service: January 03, 2025
no issues overnight. reports pain well controlled
Objective
Labs:
01/03/25 02:22
01/03/25 02:22
Labs
Hgb 11.5 g/dL (12.0-16.0) L 01/03/25 02:22
Hct 33.4 % (37.0-47.0) L 01/03/25 02:22
Plt Count 199 10^3/uL (130-400) 01/03/25 02:22
Sodium 141 mmol/L (135-145) 01/03/25 02:22
Potassium 4.7 mmol/L (3.5-5.1) 01/03/25 02:22
BUN 19 mg/dl (7-17) H 01/03/25 02:22
Creatinine 0.7 mg/dL (0.6-1.0) 01/03/25 02:22
Glucose 99 mg/dl (70-99) 01/03/25 02:22
Troponins
12/31/24
21:36
Troponin I < 0.012
Vital Signs and I&O:
Vital Signs
Temp Pulse Resp BP Pulse Ox
98.6 F 35 18 149/60 98
01/03/25 08:13 01/03/25 06:00 01/03/25 08:13 01/03/25 02:17 01/03/25 08:13
Vital Signs
Temp Pulse Resp BP Pulse Ox
98.6 F 35 18 149/60 98
01/03/25 08:13 01/03/25 06:00 01/03/25 08:13 01/03/25 02:17 01/03/25 08:13
Intake & Output
01/01/25 01/02/25 01/03/25 01/04/25
07:59 07:59 07:59 07:59
Intake Total 790 / 790 1020 / 1020
Output Total 650 / 650
Balance 790 / 790 370 / 370
Physical Exam
Physical Exam
GEN: No distress, awake, alert, oriented x3.
HEENT: supple, anicteric, mmm, eomi
LUNGS: CTA B/L, no wheezes/rales
CV: Reg, S1/S2, no murmur
ABD: soft, BS+, NT/ND
EXT: No cyanosis, clubbing, edema
NEURO: Gross non-focal
SKIN: Warm, pink, dry. No rash
--- NOTE | 2025-01-03 10:33 | CM ---
Chart reviewed. Patient is independent of ADLS, lives with her in a 2 [address], 1st level set up, 1 [place], 0 DME. Plan is for the patient to return home.
[2025-01-03 11:38] VITALS: BP 145/63
--- NOTE | 2025-01-03 12:55 | W.PN.GS2 ---
Today's Communication / Plan
-
Dispo planning
Assessment / Plan
-
This is a 64-year-old female postoperative day 1 from a laparoscopic cholecystectomy for acute cholecystitis. Doing well, expected postoperative course.
Blood work and exam reassuring.
Okay to DC from surgery perspective. Discharge instructions placed, pain medication prescription sent. Does not need any further antibiotics.
Patient to follow-up with me in 2 to 3 weeks.
Time Spent
Total Time Spent with Patient (in minutes): 20
Subjective Data
-
Date of Service: January 03, 2025
Interval Events:
No acute events overnight. Slept well. Pain Controlled. Denies Nausea/Vomiting, +bowel function. Tolerating diet.
Objective Data
-
Intake and Output
01/02/25 01/03/25 01/04/25
06:59 06:59 06:59
Intake Total 790 / 790 1020 / 1020
Output Total 650 / 650
Balance 790 / 790 370 / 370
Intake:
Oral fluids 240 / 240 320 / 320
IV fluids (Total) 500 / 500 500 / 500
Lr 1,000 ml @ 80 mls/hr IV . 500 / 500 400 / 400
[id number] Rx#:[id number]
Normosol 100 / 100
IV piggybacks 50 / 50 200 / 200
Output:
Urine, Voided 650 / 650
Other:
Number of approximated MODERATE 1 2
amounts of urine
Vital Signs
Temp Pulse Resp BP Pulse Ox
98.6 F 46 18 145/63 99
01/03/25 11:40 01/03/25 12:00 01/03/25 11:40 01/03/25 11:38 01/03/25 11:40
Lab Results
01/03/25 02:22
01/03/25 02:22
Calcium 9.0 mg/dl (8.4-10.2) 01/03/25 02:22
Magnesium 1.9 mg/dl (1.6-2.3) 01/01/25 05:15
Total Bilirubin 0.6 mg/dl (0.2-1.3) 01/03/25 02:22
Direct Bilirubin 0.2 mg/dl (0.0-0.4) 01/01/25 05:15
AST 64 U/L (14-36) H 01/03/25 02:22
ALT 44 U/L (0-35) H 01/03/25 02:22
Alkaline Phosphatase 44 U/L (38-126) 01/03/25 02:22
Total Protein 6.5 g/dl (6.3-8.2) 01/03/25 02:22
Albumin 4.1 g/dl (3.5-5.0) 01/03/25 02:22
Physical Exam
-
GENERAL/NEURO: Awake, Alert, no distress
CHEST: Unlabored breathing on RA
ABDOMEN: Soft, Non-Tender, Non-Distended, incisions clean dry and intact.
Patient has a crowley catheter: No
Patient has a central line: No
--- NOTE | 2025-01-03 12:59 | W.PN.HOSP.TC ---
Addendum entered and electronically signed by Edgardo Romero MD 01/03/25 15:59:
[id number]
Original Note:
Today's Communication/Plan
-
pain regimen
f/u cbc and cmp in 3-5 days with pcp
f/u pcp within 1 week; F/u Cards and Gen Surg outpt
Assessment / Plan
Assessment / Plan
Physical Exam
General: Other (64y F in no acute distress.)
HEENT: Moist mucous membranes and PERRLA
Respiratory: Clear; No Wheezes, Rales or Rhonchi
Cardiac: S1/S2 and Regular Rhythm; No Murmur; Bradycardia
GI: Soft, Non Distended, Normal Bowel Sounds and Other (Mild epigastric tenderness. )
Musculoskeletal: No Clubbing, No Cyanosis and No Edema
Neuro: AO x 3
A/P: Patient is a 64y F with PMH significant for hypertension and hypothyroidism who presents to ED complaining of abdominal pain.
Cholelithiasis +/- Acute Cholecystitis
- Admit for further evaluation and treatment.
- postoperative day 1 from a laparoscopic cholecystectomy for acute cholecystitis.
-Pain control on DC
-f/u CBC and CMP in 3-5 days with pcp
Heart Block
- Mobitz Type I
- Atropine, dopamine are options ray-procedure
-Pacing pads remain on
- Cardiology evaluation for additional recommendations (follows with Dr. Zendejas / [facility]).
-F/u outpt cardiology
Benign Hypertension
- Stable. Hold lisinopril and HCTZ acutely.
- Follow for changes.
Hypothyroidism
- Stable. Continue current T4 supplementation.
DVT Prophylaxis: SCDs; DVT ppx post procedure
Code Status: Full
More than 30 minutes spent in discharge including
Final examination of the patient
Summarizing hospital stay
Instructions for continuing care to all relevant caregivers
Preparation of discharge records, prescriptions, and referral forms
Total time spent (in minutes): 36
Anticipated Discharge: Today
Subjective/Interval History
-
Date of Service: January 03, 2025
No events, tolerated laparoscopic cholecystectomy yesterday well
Objective Data
-
Labs:
Laboratory Results
01/03/25
02:22
WBC 7.4
Hgb 11.5 L
Hct 33.4 L
Plt Count 199
Sodium 141
Potassium 4.7
Chloride 105
Carbon Dioxide 25
BUN 19 H
Creatinine 0.7
Glucose 99
Calcium 9.0
Total Bilirubin 0.6
AST 64 H
ALT 44 H
Alkaline Phosphatase 44
Vital Signs:
Vital Signs
Temp Pulse Resp BP Pulse Ox
98.6 F 46 18 145/63 99
01/03/25 11:40 01/03/25 12:00 01/03/25 11:40 01/03/25 11:38 01/03/25 11:40
I&O
01/02/25 01/03/25 01/04/25
06:59 06:59 06:59
Intake Total 790 / 790 1020 / 1020
Output Total 650 / 650
Balance 790 / 790 370 / 370
Review of Systems
-
History Source: Patient
All other systems: Not reviewed unless documented
Data Reviewed
-
Ultrasound: Report Reviewed by me
Labs: Labs Reviewed by me
--- NOTE | 2025-01-03 13:06 | W.DS.TRANS ---
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
-
Discharge Instructions:
Discharge Diagnosis/Procedures Acute cholecystitis. Laparoscopic
cholecystectomy; Mobitz type I
Diet No restrictions
Activity No strenuous activity
Driving Restrictions As prior to admission
Bathing Restrictions OK to Shower
Blood Work cbc and cmp in 3-5 days with pcp
Instructions:
Stand-Alone Forms:
Changes to Home Medications: Yes
Discharge Medications:
DC Medications w/original date entered in [employer]
calcium carbonate 500 mg PO DAILY Supplement 01/01/25
cholecalciferol (vitamin D3) 25 mcg (1,000 unit) tablet 25 mcg PO DAILY Supplement 01/01/25
fenofibrate 54 mg tablet 54 mg PO DAILY HIGH TRIGLYCERIDES 01/01/25
hydrochlorothiazide 12.5 mg tablet 12.5 mg PO DAILY Fluid Retention/Swelling 01/01/25
levothyroxine 125 mcg tablet 125 mcg PO DAILY Thyroid 01/01/25
lisinopril 10 mg tablet 10 mg PO DAILY Blood Pressure 01/01/25
acetaminophen 325 mg tablet 650 mg (2 x 325 mg) PO Q6HPRN PRN mild pain #14 tabs 01/03/25
ibuprofen 600 mg tablet 600 mg PO Q6H PRN pain #14 tabs 01/03/25
tramadol 50 mg tablet 25 mg (1/2 x 50 mg) PO Q6HPRN PRN severe pain/breakthrough pain #8 tabs 01/03/25
Home Medication Changes
acetaminophen 325 mg tablet 650 mg (2 x 325 mg) PO Q6HPRN PRN mild pain #14 tabs 01/03/25
ibuprofen 600 mg tablet 600 mg PO Q6H PRN pain #14 tabs 01/03/25
tramadol 50 mg tablet 25 mg (1/2 x 50 mg) PO Q6HPRN PRN severe pain/breakthrough pain #8 tabs 01/03/25
Pending Results: No
== END 2025-01-03 13:53 | disposition home or self-care (01) | DRG 418 ==
LOC: IVU 01:56
PROVIDERS: Emergency Medicine; Nurse Practitioner Gerontology; ADMITTING PHYSICIAN Hospitalist; ATTENDING PHYSICIAN Internal Medicine; EMERGENCY PHYSICIAN Emergency Medicine; FAMILY PHYSICIAN Nurse Practitioner; OTHER PHYSICIAN Internal Medicine Cardiovascular Disease; OTHER PHYSICIAN Surgery
PROC: 5A09357 Assistance with Respiratory Ventilation, Less than 24 Consecutive Hours, Continuous Positive Airway Pressure (ICD-10-PCS; 2025-01-01)
PROC: 0FT44ZZ Resection of Gallbladder, Percutaneous Endoscopic Approach (ICD-10-PCS; 2025-01-02)
DX: K80.12 Calculus of gallbladder with acute and chronic cholecystitis without obstruction (principal); I44.2 Atrioventricular block, complete; I44.1 Atrioventricular block, second degree; I10 Essential (primary) hypertension; E03.9 Hypothyroidism, unspecified; Z87.891 Personal history of nicotine dependence; G47.30 Sleep apnea, unspecified; Z79.890 Hormone replacement therapy; Z79.899 Other long term (current) drug therapy; E78.00 Pure hypercholesterolemia, unspecified; I48.91 Unspecified atrial fibrillation; K66.0 Peritoneal adhesions (postprocedural) (postinfection)
CPT/HCPCS: 88304; 76700; 80048; 80053; 80076; 81003; 81015; 82962; 83690; 83735; 84439; 84443; 84484; 85025; 85027; 93005; 93306; 94660; 96365; 96375; 99291; A4300

== ENCOUNTER → 2025-03-31 13:55 | Outpatient (REF) | payer OTHER, SELFPAY | LOC: WDC 13:55 | PROVIDERS: ATTENDING PHYSICIAN Nurse Practitioner Adult Health; FAMILY PHYSICIAN Nurse Practitioner | DX: Z12.31 Encounter for screening mammogram for malignant neoplasm of breast (principal) | CPT/HCPCS: 77063; 77067 ==

== ENCOUNTER 2025-05-01 06:16 | Day surgery (SDC) | payer OTHER, SELFPAY | END 2025-05-01 08:53 | disposition home or self-care (01) | LOC: GI 06:16 | PROVIDERS: ATTENDING PHYSICIAN Surgery; FAMILY PHYSICIAN Nurse Practitioner | DX: Z12.11 Encounter for screening for malignant neoplasm of colon (principal); Z86.0100 Personal history of colon polyps, unspecified; K57.30 Diverticulosis of large intestine without perforation or abscess without bleeding | CPT/HCPCS: G0105 ==

== ENCOUNTER → 2025-05-15 08:35 | Outpatient (REF) | payer OTHER, SELFPAY | LOC: MRI 08:35 | PROVIDERS: ATTENDING PHYSICIAN Internal Medicine Advanced Heart Failure and Transplant Cardiology; FAMILY PHYSICIAN Nurse Practitioner | DX: E06.3 Autoimmune thyroiditis (principal); I42.9 Cardiomyopathy, unspecified; I10 Essential (primary) hypertension; Z83.49 Family history of other endocrine, nutritional and metabolic diseases; Z13.6 Encounter for screening for cardiovascular disorders | CPT/HCPCS: 75561; 75565; A9585 ==